=== PATIENT | male | born 1990 | race African-American/Black ===

== ENCOUNTER → 2016-08-14 | Outpatient (CLI) | payer MEDICAID ==
--- NOTE | 2016-08-14 12:30 | REP ---
LUMBAR SPINE, SEVEN VIEWS: HISTORY: Back pain. There is no acute fracture or subluxation. The intervertebral discs are normal in height. The facet joints are normal in appearance. IMPRESSION: There is no acute fracture or subluxation. Signed by Rios Quinteros MD 08/14/2016 12:31 P
--- NOTE | 2016-08-14 13:28 | REP ---
RIGHT SHOULDER, THREE VIEWS: HISTORY: Pain. There is no acute fracture or dislocation. The joint spaces are normal in appearance. IMPRESSION: There is no acute fracture or dislocation. Signed by Rios Quinteros MD 08/14/2016 01:30 P
== END ==
LOC: M RAD 11:51
PROVIDERS: ATTEND Physician Assistant Medical
DX: M54.5 Low back pain (principal); M25.511 Pain in right shoulder

== ENCOUNTER 2016-09-07 19:01 | Emergency (ER) | payer MEDICAID ==
[~2016-09-07] VITALS: Ht 170.2 cm; Wt 80.7 kg
[2016-09-07 19:02] VITALS: BP 147/69
[2016-09-07] MEDS ORDERED: BAYE325T12 PO (19:30)
--- NOTE | 2016-09-07 21:28 | REP ---
RIGHT HAND: HISTORY: Pain after trauma. There is a transverse fracture through the mid diaphysis of the 5th metacarpal with volar angulation. There is associated soft tissue swelling. Signed by Cecil Vargas DO 09/08/2016 11:45 A
== END 2016-09-07 22:11 | disposition home or self-care (01) ==
LOC: M ED 20:02
DX: S62.306A Unspecified fracture of fifth metacarpal bone, right hand, initial encounter for closed fracture (principal); V18.4XXA Pedal cycle driver injured in noncollision transport accident in traffic accident, initial encounter; Y92.410 Unspecified street and highway as the place of occurrence of the external cause; Y93.55 Activity, bike riding; Y99.8 Other external cause status

== ENCOUNTER → 2018-03-12 | Outpatient (REF) | payer OTHER ==
[2018-03-13 16:14] LABS: CHLAMYDIA DNA AMPLIFICATION NEGATIVE (NEGATIVE); GC DNA AMPLIFICATION NEGATIVE (NEGATIVE)
== END ==
LOC: M SFHCPLAZ 03-13 13:12
DX: R30.0 Dysuria (principal)
CPT/HCPCS: 87591

== ENCOUNTER 2018-03-15 21:14 | Emergency (ER) | payer OTHER ==
[2018-03-16 00:23] LABS: KETONE, URINE AUTO RFX NEGATIVE (NEGATIVE); LEUKOCYTE ESTERASE UR AUTO RFX NEGATIVE (NEGATIVE); MUCUS, URINE RFX SMALL (NEGATIVE); NITRITE, URINE AUTO RFX NEGATIVE (NEGATIVE); RBC, URINE AUTO RFX 89 /HPF (0-3); SPECIFIC GRAVITY UR AUTO RFX 1.021 (1.002-1.035); SQUAM EPITHELIAL CELL UR AURFX 0 /HPF (0-6)
[2018-03-16 00:24] LABS: WBC, URINE AUTO RFX 19 /HPF (0-3)
[2018-03-16 00:27] LABS: BASO % 0.6 % (0.0-1.0); EOS # 0.2 10^3/uL (0.0-0.50); EOS % 3.1 % (0.0-3.0); HEMATOCRIT 39.1 % (42.0-52.0); HEMOGLOBIN 12.6 g/dl (13.5-17.5); IMMATURE GRANULOCYTE % 0.6 % (0-3.0); LYMPH # 2.5 10^3/uL (1.5-6.5); LYMPH % 46.8 % (24.0-44.0); MEAN CORPUSCULAR HEMOGLOBIN 27.7 pg (27.0-33.0); MEAN CORPUSCULAR HGB CONC 32.2 g/dl (32.0-36.5); MEAN CORPUSCULAR VOLUME 85.9 fl (80.0-96.0); MONO # 0.4 10^3/uL (0.0-0.8); MONO % 7.6 % (0.0-5.0); NEUTROPHILS # 2.3 10^3/uL (1.8-7.7); NEUTROPHILS % 41.3 % (36.0-66.0); PLATELET COUNT, AUTOMATED 150 10^3/uL (150-450); RED BLOOD COUNT 4.55 10^6/uL (4.30-6.10); RED CELL DISTRIBUTION WIDTH 13.7 % (11.5-14.5); WHITE BLOOD COUNT 5.4 10^3/uL (4.0-10.0)
[2018-03-16 00:43] LABS: ANION GAP 7 MEQ/L (8-16); BLOOD UREA NITROGEN 14 MG/DL (7-18); CALCIUM LEVEL 8.3 MG/DL (8.5-10.1); CARBON DIOXIDE LEVEL 28 MEQ/L (21-32); CHLORIDE LEVEL 108 MEQ/L (98-107); CREATININE FOR GFR 1.05 MG/DL (0.70-1.30); GLOMERULAR FILTRATION RATE > 60.0 (>60); GLUCOSE, FASTING 109 MG/DL (70-100); POTASSIUM SERUM 4.3 MEQ/L (3.5-5.1); SODIUM LEVEL 143 MEQ/L (136-145)
[2018-03-16] MEDS: PHENAZOPYRIDINE 100 MG TAB PO (01:14)
[2018-03-16 01:46] LABS: CHLAMYDIA DNA AMPLIFICATION NEGATIVE (NEGATIVE); GC DNA AMPLIFICATION NEGATIVE (NEGATIVE)
[2018-03-16] MEDS: CIPROFLOXACIN 500 MG TAB PO (01:52)
== END 2018-03-16 01:55 | disposition home or self-care (01) ==
LOC: M ED 03-16 01:55
DX: N39.0 Urinary tract infection, site not specified (principal); R30.0 Dysuria; Z72.0 Tobacco use
CPT/HCPCS: 74176

== ENCOUNTER → 2019-05-20 | Outpatient (REF) | payer OTHER ==
[~2019-05-20] MED LIST: BAYE325T12 PO; CIPR-249 PO; PYRI1TAB5 PO
== END ==
LOC: M SFHCPLAZ 09:38
PROVIDERS: ATTEND Physician Assistant
DX: Z00.00 Encounter for general adult medical examination without abnormal findings (principal); Z53.9 Procedure and treatment not carried out, unspecified reason; Z13.29 Encounter for screening for other suspected endocrine disorder; Z13.220 Encounter for screening for lipoid disorders

== ENCOUNTER 2022-04-23 18:27 | Emergency (ER) | payer OTHER ==
[~2022-04-23] VITALS: Ht 170.2 cm; Wt 64.7 kg
[~2022-04-23 18:27] MED LIST changes: +AMOX500C PO
[2022-04-23 18:41] VITALS: BP 118/77
== END 2022-04-23 23:44 | disposition left against medical advice (07) ==
LOC: EDBD 18:27 → M ED 18:27
DX: Z53.21 Procedure and treatment not carried out due to patient leaving prior to being seen by health care provider (principal)

== ENCOUNTER 2022-12-10 07:58 | Emergency (ER) | payer OTHER ==
[~2022-12-10] VITALS: Ht 170.2 cm; Wt 67.0 kg
[2022-12-10] MEDS ORDERED: ACET-683 PO (10:22)
[2022-12-10] MEDS ORDERED: IBUP200C25 PO (10:22)
[2022-12-10] MEDS ORDERED: methocarbamoL 750 MG TAB PO ONE (11:10)
[2022-12-10] MEDS ORDERED: KETOROLAC 60MG 2ML VIAL IM ONE (11:10)
[2022-12-10] MEDS ORDERED: methylPREDNISolone 125MG 2ML VIAL IM ONE (11:10)
[2022-12-10] MEDS ORDERED: LIDOCAINE 5% (LIDODERM) PATCH TD ONE (11:10)
[2022-12-10] MEDS ORDERED: METH-1165 PO (12:38)
[2022-12-10] MEDS ORDERED: ASPE4PAD TOP (12:38)
[2022-12-10] MEDS ORDERED: NAPR-837 PO (12:38)
[2022-12-10 12:45] VITALS: BP 122/84; TEMP 97.8; O2SAT 100
== END 2022-12-10 12:53 | disposition home or self-care (01) ==
LOC: M ED 07:58
DX: M54.50 Low back pain, unspecified (principal); J45.909 Unspecified asthma, uncomplicated
CPT/HCPCS: 72110; 96372; 99283; J1885; J2930